=== PATIENT | male | born 1960 | race Caucasian/White ===

== ENCOUNTER 2018-12-24 18:03 | Emergency (ER) | payer BC, SELFPAY ==
[~2018-12-24 18:03] MED LIST: Iopamidol 370 76% 100 ML VIAL ONE
[2018-12-24] MEDS ORDERED: Fentanyl 100 MCG/2 ML VIAL ONE ×2 (18:23→18:47)
[2018-12-24] MEDS ORDERED: Ondansetron PF 4 MG/2 ML Vial ONE (18:23)
[2018-12-24] MEDS ORDERED: Sodium Chloride 0.9% 1,000 ML ONE (18:23)
[2018-12-24 18:51] LABS: #Lymphocytes 2.3 thou/uL (1.20-3.40); #Monocytes 0.7 thou/uL (0.11-0.59); #Neutrophils 6.6 thou/uL (1.40-6.50); %Basophils 0.5 % (0.0-1.0); %Eosinophils 0.2 % (0.0-10.0); %Monocytes 6.8 % (0.0-10.0); %Neutrophils 68.5 % (42.0-75.0); Hemoglobin 17.7 g/dL (14.0-18.0); Mean Corpuscular HGB CONC 32.9 g/dL (32.0-36.0); Mean Corpuscular Hemoglobin 29.1 pg (27.0-31.0); Mean Corpuscular Volume 88.4 fL (78.0-98.0); Mean Platelet Volume 7.8 fL (7.4-10.4); Platelet Count 180 thou/uL (130-400); RBC Distribution Width 12.3 % (11.5-14.5); White Blood Cell (WBC) Count 9.7 thou/uL (4.8-10.8)
[2018-12-24 19:04] LABS: Acetaminophen Less than 6.0 mcg/mL (10.0-30.0); Alcohol Less than 10 mg/dL (Less than 10); Salicylate Less than 8.0 mg/dL (15.0-30.0)
[2018-12-24 19:06] LABS: ALT (SGPT) 36 U/L (8-55); AST (SGOT) 32 U/L (5-34); Albumin 4.7 g/dL (3.5-5.0); Alkaline Phosphatase 101 U/L (40-150); Anion Gap 16 mmol/L (10-20); BUN (Urea Nitrogen) 10 mg/dL (8.4-25.7); Bilirubin, Total 0.8 mg/dL (0.2-1.2); Calc. Creatinine Clearance 0 mL/min (70-130); Calcium 10.2 mg/dL (7.8-10.44); Carbon Dioxide 22 mmol/L (22-29); Chloride 101 mmol/L (98-107); Estimated GFR-MDRD 74; Globulin 3.6 g/dL (2.4-3.5); Glucose 127 mg/dL (70-105); Lipase 16 U/L (8-78); Protein, Total 8.3 g/dL (6.0-8.3); Sodium 135 mmol/L (136-145)
[2018-12-24] MEDS ORDERED: metroNIDAZOLE 500 MG/100 ML BAG ONE ×2 (19:40→19:42)
[2018-12-24] MEDS ORDERED: Sodium Chloride 0.9% 500 ML ONE (19:40)
[2018-12-24] MEDS ORDERED: cefTRIAXone\\ROCEPHIN 1 GM VIAL ONE (19:40)
--- NOTE | 2018-12-24 19:44 | CT ---
CT OF THE ABDOMEN AND PELVIS WITH IV CONTRAST 12/24/18 INDICATION: History of diffuse abdominal pain with nausea and dry heaves. COMPARISON: Prior CT of the abdomen and pelvis dated 06/06/11. FINDINGS: The lungs bases are clear. There is a small hypodensity within the right hepatic lobe measuring 8 mm. This is enlarged from the prior exam where it measured 4.5 mm. There is mild intrahepatic ductal dil atation. The pancreas and adrenal glands appear within normal limits. The spleen and kidneys appear w ithin normal limits. There are moderate calcifications involving the abdominal aorta, mildly progressed from the prior exa m. There are scattered diverticula involving the colon. Portions of the sigmoid colon are poorly distend ed accentuating the lockhart. Mild colitis within this region cannot be entirely excluded. There is a no rmal appendix in the right lower quadrant. The small bowel appears mildly thickened within the left u pper quadrant of the abdomen. No drainable fluid collection is evident. No acute osseous abnormality is evident. There is scattered degenerative and osteoarthritic change. IMPRESSION: 1. Some accentuated wall thickening involving loops of jejunum in the left upper quadrant can be seen with an enteritis. 2. Enlarging hypodensity within the right hepatic lobe. This has been slowly enlarging from 2010 and may reflect an enlarging hemangioma or cyst. As a conservative measure, a followup abdominal ult rasound in 3 to 6 months to document stability is recommended. 3. Colonic diverticulosis with area of short segment narrowing involving the sigmoid colon may b e related to peristalsis; however, mild focal region of diverticulitis is not excluded. Would recomme nd correlation with patient's clinical history. 4. Other findings as above. POS: JASVIR
[2018-12-24] MEDS ORDERED: Acetaminophen/Codeine 30-300mg Tablet ONE (20:58)
== END 2018-12-24 21:10 | disposition home or self-care (01) ==
LOC: NAV ERS 18:03
DX: K57.32 Diverticulitis of large intestine without perforation or abscess without bleeding (principal); F17.210 Nicotine dependence, cigarettes, uncomplicated
CPT/HCPCS: 74177; 80053; 80307; 83605; 83690; 84484; 85025; 93005; 96361; 96365; 96367; 96375; J0696; J2405; J3010; J7050; Q9967

== ENCOUNTER 2021-01-08 11:13 | Emergency (ER) | payer SELFPAY ==
[2021-01-08] MEDS ORDERED: Morphine 4 MG/ML VIAL ONE ×2 (11:32→11:59)
[2021-01-08] MEDS ORDERED: Ondansetron PF 4 MG/2 ML Vial ONE (11:32)
[2021-01-08 12:03] LABS: #Basophils 0.1 thou/uL (0.0-0.2); #Eosinphils 0.1 thou/uL (0.0-0.7); #Lymphocytes 2.2 thou/uL (1.20-3.40); #Monocytes 0.7 thou/uL (0.11-0.59); #Neutrophils 5.1 thou/uL (1.40-6.50); %Basophils 0.9 % (0.0-1.0); %Eosinophils 1.8 % (0.0-10.0); %Lymphocytes 26.8 % (21.0-51.0); %Monocytes 8.8 % (0.0-10.0); %Neutrophils 61.7 % (42.0-75.0); ALT (SGPT) 29 U/L (8-55); AST (SGOT) 28 U/L (5-34); Albumin 4.1 g/dL (3.4-4.8); Alkaline Phosphatase 82 U/L (40-110); Anion Gap 12 mmol/L (10-20); BUN (Urea Nitrogen) 11 mg/dL (8.4-25.7); Bilirubin, Total 0.5 mg/dL (0.2-1.2); Calc. Creatinine Clearance 0 mL/min (70-130); Carbon Dioxide 27 mmol/L (23-31); Chloride 103 mmol/L (98-107); Globulin 3.3 g/dL (2.4-3.5); Glucose 122 mg/dL (80-115); Hemoglobin 15.2 g/dL (14.0-18.0); Mean Corpuscular HGB CONC 33.2 g/dL (32.0-36.0); Mean Corpuscular Hemoglobin 30.1 pg (27.0-31.0); Mean Corpuscular Volume 90.5 fL (78.0-98.0); Mean Platelet Volume 8.2 fL (7.4-10.4); Platelet Count 129 thou/uL (130-400); Potassium 3.9 mmol/L (3.5-5.1); Protein, Total 7.4 g/dL (5.8-8.1); Red Blood Cell (RBC) Count 5.05 mill/uL (4.70-6.10); Sodium 138 mmol/L (136-145); White Blood Cell (WBC) Count 8.3 thou/uL (4.8-10.8)
[2021-01-08 12:49] LABS: Bilirubin Negative (Negative); Blood, Urine Trace (Negative); Clarity Clear (Clear); Glucose, Urine (Dipstick) Negative (Negative); Ketone, Urine Negative (Negative); Leukocyte Negative (Negative); Nitrite Negative (Negative); Protein, Urine (Dipstick) Negative (Neg-Trace); Specific Gravity, Urine 1.025 (1.005-1.030); Urobilinogen 0.2 mg/dL (Less than 2)
[2021-01-08] MEDS ORDERED: Ketorolac Tromethamine 30 MG/ML VIAL ONE ×2 (12:50→12:51)
[2021-01-08 12:56] LABS: RBC/HPF 0-3 HPF (0-3); WBC/HPF 0-3 HPF (0-3)
[2021-01-08 12:57] LABS: Bacteria/HPF Rare-Few HPF (None Seen); Squamous Epithelial 0-3 HPF (0-3)
== END 2021-01-08 13:28 | disposition short-term general hospital (02) ==
LOC: NAV ERS 11:13
DX: R10.2 Pelvic and perineal pain (principal); F17.210 Nicotine dependence, cigarettes, uncomplicated; Z79.82 Long term (current) use of aspirin; Z79.899 Other long term (current) drug therapy
CPT/HCPCS: 51701; 74176; 80053; 81003; 81015; 85025; 96374; 96375; 96376; J1885; J2270; J2405